=== PATIENT | male | born 1990 | race Caucasian/White ===

== ENCOUNTER 2019-10-30 09:50 | Observation (INO) | payer OTHER ==
[2019-10-30 10:00] VITALS: BMI 21.4
--- NOTE | 2019-10-30 10:30 | PDOC ---
Documentation entered by Maria M Joseph SCRIBE, acting as scribe for Tish Soriano MD. Tish Soriano MD: This documentation has been prepared by the anujaeOpal Xhesika, SCRIBE, under my direction and personally reviewed by me in its entirety. I confirm that the documentation accurately reflects all work, treatment, procedures, and medical decision making performed by me. History of Present Illness - General Chief Complaint: Seizure Stated Complaint: SEIZURES Time Seen by Provider: 10/30/19 09:55 History Source: Patient Exam Limitations: No Limitations - History of Present Illness Initial Comments: 10/30/19 10:03 The patient is a 29 year old male with a significant PMH of seizures (on Depakote)/infantile spasms , anemia, asthma, GERD, and G-tube who presents to the emergency department [facility] [place] s/p witnessed seizure. Per aide at bedside who witnessed the seizure, the pt endorsed hand spasms which is consiste nt with his typical seizures. Aide states the patient was awake and conscious during his episode. Aide notes the pt is at his baseline. Per aide, she denies any chest pain, shortness of breath, fever, chills, cough, nausea, vomiting, diarrhea prior to seizure. Aide unsure how long it lasted for and stated that he had an episode and then it stopped and then started again but patient was awake and able to communicate throughout. Further clarification- Pt's mother (on the phone) states the pt has infantile spasms that are triggered by pain, feeling cold after showers and changes in position. Pt states he felt cold as they were finishing bathing him, which triggered his symptoms. Aide at bedside confirmed that symptoms began as they were finishing up bathing him. Allergies: Per Nursing Charts Past History - Medical History Allergies/Adverse Reactions: Allergies Allergy/AdvReac Type Severity Reaction Status Date / Time Benzodiazepines Allergy Verified 10/30/19 10:01 fentanyl Allergy Verified 10/30/19 10:01 morphine Allergy Verified 10/30/19 10:01 oxycodone Allergy Verified 10/30/19 10:01 vancomycin Allergy Verified 10/30/19 10:01 Home Medications: Ambulatory Orders Albuterol 0.083% Nebulizer Stella [Ventolin 0.083%] 1 neb NEB QID 10/30/19 Ascorbic Acid [Vitamin C] 500 mg GT DAILY 10/30/19 Baclofen [Ozobax] 5 mg GT TID 10/30/19 Budesonide 1 mg IH BID 10/30/19 Calcium Carbonate/Vitamin D3 [Calcium 500 + Vit D3 400 Tab] 1 each GT BID 10/30/19 Ergocalciferol (Vitamin D2) [Vitamin D2] 50,000 unit GT DAILY 10/30/19 Famotidine [Pepcid] 40 mg GT BID 10/30/19 Glycopyrrolate [Cuvposa] 1 mg GT TID 10/30/19 Sennosides [Senna] 8.6 mg GT HS 10/30/19 Valproic Acid (As Sodium Salt) [Valproic Acid] 750 mg GT BID 10/30/19 Anemia: Yes (iron) Asthma: Yes COPD: No GI Disorders: Yes (gerd) Seizures: Yes Other medical history: cp - Surgical History GI Surgery: Yes (gtube) - Psycho-Social/Smoking History Smoking History: Never smoked Have you smoked in the past 12 months: No Information on smoking cessation initiated: No - Substance Abuse Hx (Audit-C & DAST Scrn) How often the patient has a drink containing alcohol: Never Score: In Men: 4 or > Positive; In Women: 3 or > Positive: 0 Screen Result (Pos requires Nsg. Audit-10AR): Negative In the last yr the pt used illegal drug/Rx for NonMed reason: No Score: Yes response is considered Positive: 0 Screen Result (Positive result requires Nsg. DAST-10): Negative Review of Systems - Review of Systems Able to Perform ROS?: Yes Comments:: 10/30/19 10:11 GENERAL/CONSTITUTIONAL: No fever or chills. No weakness. HEAD, EYES, EARS, NOSE AND THROAT: No change in vision. No ear pain or discharge. No sore throat. CARDIOVASCULAR: No chest pain or shortness of breath. RESPIRATORY: No cough, wheezing, or hemoptysis. GASTROINTESTINAL: No nausea, vomiting, diarrhea or constipation. GENITOURINARY: No dysuria, frequency, or change in urination. MUSCULOSKELETAL: No joint or muscle swelling or pain. No neck or back pain. SKIN: No rash NEUROLOGIC: No headache, vertigo, loss of consciousness, or change in strength/sensation. +seizure ENDOCRINE: No increased thirst. No abnormal weight change. HEMATOLOGIC/LYMPHATIC: No anemia, easy bleeding, or history of blood clots. ALLERGIC/IMMUNOLOGIC: No hives or skin allergy. *Physical Exam - Vital Signs Last Vital Signs Temp Pulse Resp BP Pulse Ox 102 H 18 113/78 97 10/30/19 09:54 10/30/19 09:54 10/30/19 09:54 10/30/19 09:54 - Physical Exam 10/30/19 10:26 GENERAL: Well appearing, in no acute distress HEENT: NCAT, conjunctiva not injected, MMM NECK: supple LUNGS: CTAB. Good air entry. No wheezes, No Rhonchi and no crackles HEART: RRR, + s1 s2 ABDOMEN: Soft, nontender, normoactive bowel sounds. No guarding, no rebound. No masses EXTREMITIES: Warm and well perfused. No LE edema. No cords, erythema, or tenderness NEUROLOGICAL: awake, alert, able to answer yes or no to questions (baseline as per aide and mother). Sensation grossly intact to light touch. No focal deficits. SKIN: Warm, dry, normal turgor, no rashes or lesions noted. ED Treatment Course - LABORATORY CBC & Chemistry Diagram: 10/30/19 10:30 10/30/19 10:30 Medical Decision Making - Medical Decision Making 10/30/19 10:28 29yo M h/o infantile spasms/seizures p/w seizure like activity today typical of his seizures/spasms, likely triggered by feeling cold while he was being bathed, currently as baseline MS without any focal deficits. No infectious complaints to suggest infectious etiology and no preceding trauma. However given developmental disability and hx obtained from aide and mother who called will check labs, urine and xray to r/o occult infection or electrolyte abnormality. Plan: -labs -urine -cxr -reassess This clinical encounter is taking place during a federal and state health care emergency attributable to the novel Clifford Virus pandemic. The [place] of the Department of Health and Human Services has declared, pursuant to the Public Health Service Act 319F-3 (42 U.S.C. 247d-6d), that a covered persons activities related to medical countermeasures against COVID-19 will be immune from liability under Federal and State law. 10/30/19 12:58 Depakote level elevated. As per nurse at residence pt often with elevated depak ote level and therefore depakote is only given PRN. Pt. at baseline MSChristie 10/30/19 14:27 Contact info for mother will rao [phone] 10/30/19 15:36 mild transaminitis on labs. Also with elevated ammonia 76. COUNTS INCLUDE 234 BEDS AT [facility] poison control contacted, recommend repeat depakote level and ammonia every 4-6 hours until clear downward trend identified. Also recommend cardiac monitoring as VPA can cause QT prolongation. Will admit to tele obs. Discharge - Discharge Information Problems reviewed: Yes Clinical Impression/Diagnosis: Valproic acid toxicity Qualifiers: Encounter type: initial encounter Injury intent: accidental or unintentional Qualified Code(s): T42.6X1A - Poisoning by other antiepileptic and sedative- hypnotic drugs, accidental (unintentional), initial encounter Condition: Stable - Admission Yes - Follow up/Referral Referrals: Judd Jung Jr [Primary Care Provider] - - Patient Discharge Instructions - Post Discharge Activity
[2019-10-30 11:28] LABS: BASO % 0.5 % (0-2.0); EOS % 0.4 % (0-4.5); HEMATOCRIT 50.9 % (35.4-49); HEMOGLOBIN 17.3 GM/dL (11.7-16.9); LYMPH % 39.9 % (8-40); MCH 33.3 pg (25.7-33.7); MEAN PLT VOLUME 10.5 fl (7.5-11.1); MONO % 11.7 % (3.8-10.2); NEUT % 47.5 % (42.8-82.8); PLATELET COUNT 158 K/MM3 (134-434); RBC 5.19 M/mm3 (4.00-5.60); RDW 14.8 % (11.9-15.9); WHITE BLOOD COUNT 7.8 K/mm3 (4.0-10.0)
[2019-10-30 12:20] LABS: EPI CELLS >36 /uL (0-25.1); HYALINE CASTS 2 /uL (0-3.1); PH,URINE 8.5 (5.0-8.0); URINE APPEARANCE CLEAR; URINE BACTERIA 102 /uL (0-1359); URINE BILIRUBIN NEGATIVE (NEGATIVE); URINE COLOR DK YELLOW; URINE GLUCOSE (UA) NEGATIVE (NEGATIVE); URINE KETONE 1+ (NEGATIVE); URINE LEUK ESTERASE NEGATIVE (NEGATIVE); URINE NITRITE NEGATIVE (NEGATIVE); URINE PROTEIN NEGATIVE (NEGATIVE); URINE RBC 2277 /uL (0-23.9); URINE UROBILINOGEN 0.2 mg/dL (0.2-1.0); URINE WBC 11 /uL (0-25.8)
[2019-10-30 13:04] LABS: CREATININE 0.5 mg/dL (0.55-1.3); POTASSIUM 4.5 mmol/L (3.5-5.1)
[2019-10-30 13:05] LABS: ALBUMIN 3.6 g/dl (3.4-5.0); BILIRUBIN,TOTAL 0.3 mg/dL (0.2-1); CALCIUM 9.4 mg/dL (8.5-10.1); TOT PROT 8.1 g/dl (6.4-8.2)
--- NOTE | 2019-10-30 16:15 | HP ---
CHIEF COMPLAINT: s/p seizure PCP:Dr Riojas (from [facility]) HISTORY OF PRESENT ILLNESS: 29 year old male with a significant PMH of seizures (on Depakote)/infantile spasms , anemia, asthma, GERD, and G-tube who presents to the emergency department from [facility] due to witnessed seizure- as per the Aid and nurse present they state that they witnessed him jerking and shaking his hands which is consistent with his normal seizures; he suffers from infantile spasms and seizures that are usually triggered with change in positioning or change in temperature (mainly when patient is cold) and he said he felt cold (nodded yes) when the seizure occurred , as per dr riojas his depakote levels at its highest has been around 125 ad his LFTS have been trending upward (though he did not have the exact number in front of him) he is also an oral feeder however takes supplements through his G tube patient denies being in any pain and is anxious to go home; aid says that patient is at his baseline mental status (he can say yes or no and speaks a few words) ER course was notable for: (1) vitals wnl (2)wbc 7 Hgb 17 Na 141; ALT 81 AST 62 [place] level 149.9 Ammonia 77 UA ; 1+ KETONES; 3+ BLOOD; 11 WBC 2277 RBC >36 epithelial cells (3) Recent Travel: PAST MEDICAL HISTORY: see above PAST SURGICAL HISTORY: Social History: Smoking:unable to assess Alcohol:unable to assess Drugs: unable to assess Allergies Benzodiazepines Allergy (Verified 10/30/19 10:01) fentanyl Allergy (Verified 10/30/19 10:01) morphine Allergy (Verified 10/30/19 10:01) oxycodone Allergy (Verified 10/30/19 10:01) vancomycin Allergy (Verified 10/30/19 10:01) HOME MEDICATIONS: Home Medications Medication Instructions Recorded Albuterol 0.083% Nebulizer Stella 1 neb NEB QID 10/30/19 [Ventolin 0.083%] Ascorbic Acid [Vitamin C] 500 mg GT DAILY 10/30/19 Baclofen [Ozobax] 5 mg GT TID 10/30/19 Budesonide 1 mg IH BID 10/30/19 Calcium Carbonate/Vitamin D3 1 each GT BID 10/30/19 [Calcium 500 + Vit D3 400 Tab] Ergocalciferol (Vitamin D2) 50,000 unit GT DAILY 10/30/19 [Vitamin D2] Famotidine [Pepcid] 40 mg GT BID 10/30/19 Glycopyrrolate [Cuvposa] 1 mg GT TID 10/30/19 Sennosides [Senna] 8.6 mg GT HS 10/30/19 Valproic Acid (As Sodium Salt) 750 mg GT BID 10/30/19 [Valproic Acid] REVIEW OF SYSTEMS : patient denies any pain though could not further assess CONSTITUTIONAL: Absent: fever, chills, diaphoresis, generalized weakness, malaise, loss of appetite, weight change HEENT: Absent: rhinorrhea, nasal congestion, throat pain, throat swelling, difficulty swallowing, mouth swelling, ear pain, eye pain, visual changes CARDIOVASCULAR: Absent: chest pain, syncope, palpitations, irregular heart rate, lightheadedness, peripheral edema RESPIRATORY: Absent: cough, shortness of breath, dyspnea with exertion, orthopnea, wheezing, stridor, hemoptysis GASTROINTESTINAL: Absent: abdominal pain, abdominal distension, nausea, vomiting, diarrhea, constipation, melena, hematochezia GENITOURINARY: Absent: dysuria, frequency, urgency, hesitancy, hematuria, flank pain, genital pain MUSCULOSKELETAL: Absent: myalgia, arthralgia, joint swelling, back pain, neck pain SKIN: Absent: rash, itching, pallor HEMATOLOGIC/IMMUNOLOGIC: Absent: easy bleeding, easy bruising, lymphadenopathy, frequent infections ENDOCRINE: Absent: unexplained weight gain, unexplained weight loss, heat intolerance, cold intolerance NEUROLOGIC: Absent: headache, focal weakness or paresthesias, dizziness, unsteady gait, seizure, mental status changes, bladder or bowel incontinence PSYCHIATRIC: Absent: anxiety, depression, suicidal or homicidal ideation, hallucinations. PHYSICAL EXAMINATION Vital Signs - 24 hr 10/30/19 10/30/19 09:54 10:22 Temperature 98.1 F Pulse Rate 102 H Respiratory 18 Rate Blood Pressure 113/78 O2 Sat by Pulse 97 Oximetry (%) GENERAL: Awake, alert, NAD EYES:PEERLA: EOMI no scleral icterus NECK: no JVD; no lymphadenopathy LUNGS: CTA B/L no rales, rhonchi or wheezing HEART: RRRR, s1 s2 no mrg ABDOMEN: Soft, slightly distended (though aid says this is normal size) G-Tube in place c/d/i + BS no tenderness upon palpation MUSCULOSKELETAL: Normal range of motion at all joints. No bony deformities or tenderness. No CVA tenderness. EXTREMITIES: warm; well-perfused no clubbing/cyanosis or edema PSYCHIATRIC: Cooperative. Good eye contact. Appropriate mood and affect. SKIN: Warm, dry, normal turgor, no rashes or lesions noted, normal capillary refill. Laboratory Results - last 24 hr 10/30/19 10/30/19 10/30/19 10:30 10:30 10:30 WBC 7.8 RBC 5.19 Hgb 17.3 H Hct 50.9 H MCV 98.0 H MCH 33.3 MCHC 34.0 RDW 14.8 Plt Count 158 MPV 10.5 Absolute Neuts (auto) 3.7 Neutrophils % 47.5 Lymphocytes % 39.9 Monocytes % 11.7 H Eosinophils % 0.4 Basophils % 0.5 Nucleated RBC % 0 Sodium 141 Potassium 4.5 Chloride 107 Carbon Dioxide 25 Anion Gap 9 BUN 13.0 Creatinine 0.5 L Est GFR (CKD-EPI)AfAm 170.92 Est GFR (CKD-EPI)NonAf 147.47 Random Glucose 85 Calcium 9.4 Total Bilirubin 0.3 AST 62 H ALT 81 H Alkaline Phosphatase 72 Ammonia Total Protein 8.1 Albumin 3.6 Urine Color Urine Appearance Urine pH Ur Specific [place] Urine Protein Urine Glucose (UA) Urine Ketones Urine Blood Urine Nitrite Urine Bilirubin Urine Urobilinogen Ur Leukocyte Esterase Urine WBC (Auto) Urine RBC (Auto) Urine Casts (Auto) U Epithel Cells (Auto) U Sm Round Cell (Auto) Urine Bacteria (Auto) Valproic Acid 149.9 H 10/30/19 10/30/19 11:45 13:45 WBC RBC Hgb Hct MCV MCH MCHC RDW Plt Count MPV Absolute Neuts (auto) Neutrophils % Lymphocytes % Monocytes % Eosinophils % Basophils % Nucleated RBC % Sodium Potassium Chloride Carbon Dioxide Anion Gap BUN Creatinine Est GFR (CKD-EPI)AfAm Est GFR (CKD-EPI)NonAf Random Glucose Calcium Total Bilirubin AST ALT Alkaline Phosphatase Ammonia 76.90 H Total Protein Albumin Urine Color Dk yellow Urine Appearance Clear Urine pH 8.5 H Ur Specific [place] 1.026 Urine Protein Negative Urine Glucose (UA) Negative Urine Ketones 1+ H Urine Blood 3+ H Urine Nitrite Negative Urine Bilirubin Negative Urine Urobilinogen 0.2 Ur Leukocyte Esterase Negative Urine WBC (Auto) 11 Urine RBC (Auto) 2277 Urine Casts (Auto) 2 U Epithel Cells (Auto) >36 U Sm Round Cell (Auto) None seen Urine Bacteria (Auto) 102 Valproic Acid ASSESSMENT/PLAN: 29 year old male with a significant PMH of seizures (on Depakote)/infantile spasms , anemia, asthma, GERD, and G-tube who presents to the emergency department from [facility] due to witnessed seizure found to have elevated depakote and ammonia levels #S/P seizure and Valproic Acid Toxicity patients level was 149.9; ammonia 77 -[facility] posion control was contacted: depakote and ammonia levels need to be trended q4-6 hours until downward trend is seen -will contact poison control if upward trend continues as other measures aside from supportive care may need to be taken -EKG and tele monitoring as toxicity can cause prolong qtc -if qtc >475 will give 2grams of magnesium -neuro consult -seizure precautions -CPK and Prolactin levels pending -allergic to benzos -will repeat CMP to trend Na and LFTS #? UTI UA is mildly positive with 11 wbc though >36 epithelial cells; could explain why he suffered from a seizure -will cover with ceftriaxone and repeat UA in AM -f/u urine cx #Asthma c/w albuterol and budesonide -not in any acute exacerbation currently #GERD c/w famotidine f/e/n not on fluids monitor electrolytes regular diet scds tele monitoring Family Medical History Family History: Unable to Obtain Problem List - Problem (1) Valproic acid toxicity Code(s): T42.6X1A - POISONING BY OTH ANTIEPLPTC AND SED-HYPNTC DRUGS, ACC, INIT Qualifiers: Encounter type: initial encounter Injury intent: accidental or unintentional Qualified Code(s): T42.6X1A - Poisoning by other antiepileptic and sedative-hypnotic drugs, accidental (unintentional), initial encounter Visit type - Emergency Visit Emergency Visit: Yes ED Registration Date: 10/30/19 Care time: The patient presented to the Emergency Department on the above date and was hospitalized for further evaluation of their emergent condition. - New Patient This patient is new to me today: Yes Date on this admission: 10/30/19 - Critical Care Critical Care patient: No ATTENDING PHYSICIAN STATEMENT I saw and evaluated the patient. I reviewed the resident's note and discussed the case with the resident. I agree with the resident's findings and plan as documented. SUBJECTIVE: OBJECTIVE: ASSESSMENT AND PLAN:
[2019-10-30] MEDS ORDERED: CEFTRIAXONE 1 GM/50 ML BAG ONE (17:47)
[2019-10-30] MEDS ORDERED: ALBUTEROL SO4 HFA INHALER IH PRN (18:00)
[2019-10-30] MEDS: CEFTRIAXONE 1 GM in DEXTROSE 5%-WATER - 50 ML IVPB SCH (18:11)
[2019-10-30 18:12] LABS: ALBUMIN 3.7 g/dl (3.4-5.0); BILIRUBIN,TOTAL 0.3 mg/dL (0.2-1); BLOOD UREA NITROGEN 15.6 mg/dL (7-18); CALCIUM 9.4 mg/dL (8.5-10.1); CREATININE 0.5 mg/dL (0.55-1.3); POTASSIUM 4.2 mmol/L (3.5-5.1); TOT PROT 8.1 g/dl (6.4-8.2)
--- NOTE | 2019-10-30 21:47 | PN ---
Teaching Attending Note Name of Resident: Gabby Triplett ATTENDING PHYSICIAN STATEMENT I saw and evaluated the patient. I reviewed the resident's note and discussed the case with the resident. I agree with the resident's findings and plan as documented. SUBJECTIVE: Patient seen and examined at bedside, admitted for lethargy/AMS, found to have supratherapeutic Depakote levels, now trending down, MS at baseline. QTc 422ms. VSS. OBJECTIVE: GA communicative, answers to simple questions HEENT NC/AT, macrognathia, eomi, protecting airway Chest Good inspiratory effort, decreased BS at bases CVS S1, S2+, RRR Abd distended, mildly firm to palpation, BS+, no guarding NT ext contracted extremities (chronic), moves UE b/l Vital Signs - 24 hr 10/30/19 10/30/19 10/30/19 09:54 10:22 15:28 Temperature 98.1 F Pulse Rate 102 H Pulse Rate [ 101 H Left Radial] Respiratory 18 19 Rate Blood Pressure 113/78 Blood Pressure 141/71 [Left Arm] O2 Sat by Pulse 97 99 Oximetry (%) 10/30/19 19:01 Temperature Pulse Rate Pulse Rate [ Left Radial] Respiratory 19 Rate Blood Pressure Blood Pressure [Left Arm] O2 Sat by Pulse 99 Oximetry (%) Laboratory Results - last 24 hr 10/30/19 10/30/19 10/30/19 10:30 10:30 10:30 WBC 7.8 RBC 5.19 Hgb 17.3 H Hct 50.9 H MCV 98.0 H MCH 33.3 MCHC 34.0 RDW 14.8 Plt Count 158 MPV 10.5 Absolute Neuts (auto) 3.7 Neutrophils % 47.5 Lymphocytes % 39.9 Monocytes % 11.7 H Eosinophils % 0.4 Basophils % 0.5 Nucleated RBC % 0 Sodium 141 Potassium 4.5 Chloride 107 Carbon Dioxide 25 Anion Gap 9 BUN 13.0 Creatinine 0.5 L Est GFR (CKD-EPI)AfAm 170.92 Est GFR (CKD-EPI)NonAf 147.47 Random Glucose 85 Calcium 9.4 Total Bilirubin 0.3 AST 62 H ALT 81 H Alkaline Phosphatase 72 Ammonia Creatine Kinase Total Protein 8.1 Albumin 3.6 Urine Color Urine Appearance Urine pH Ur Specific [place] Urine Protein Urine Glucose (UA) Urine Ketones Urine Blood Urine Nitrite Urine Bilirubin Urine Urobilinogen Ur Leukocyte Esterase Urine WBC (Auto) Urine RBC (Auto) Urine Casts (Auto) U Epithel Cells (Auto) U Sm Round Cell (Auto) Urine Bacteria (Auto) Valproic Acid 149.9 H 10/30/19 10/30/19 10/30/19 11:45 13:45 17:00 WBC RBC Hgb Hct MCV MCH MCHC RDW Plt Count MPV Absolute Neuts (auto) Neutrophils % Lymphocytes % Monocytes % Eosinophils % Basophils % Nucleated RBC % Sodium 142 Potassium 4.2 Chloride 107 Carbon Dioxide 29 Anion Gap 6 L BUN 15.6 Creatinine 0.5 L Est GFR (CKD-EPI)AfAm 170.92 Est GFR (CKD-EPI)NonAf 147.47 Random Glucose 102 Calcium 9.4 Total Bilirubin 0.3 AST 54 H ALT 81 H Alkaline Phosphatase 80 Ammonia 76.90 H Creatine Kinase 72 Total Protein 8.1 Albumin 3.7 Urine Color Dk yellow Urine Appearance Clear Urine pH 8.5 H Ur Specific [place] 1.026 Urine Protein Negative Urine Glucose (UA) Negative Urine Ketones 1+ H Urine Blood 3+ H Urine Nitrite Negative Urine Bilirubin Negative Urine Urobilinogen 0.2 Ur Leukocyte Esterase Negative Urine WBC (Auto) 11 Urine RBC (Auto) 2277 Urine Casts (Auto) 2 U Epithel Cells (Auto) >36 U Sm Round Cell (Auto) None seen Urine Bacteria (Auto) 102 Valproic Acid 10/30/19 10/30/19 17:00 17:00 WBC RBC Hgb Hct MCV MCH MCHC RDW Plt Count MPV Absolute Neuts (auto) Neutrophils % Lymphocytes % Monocytes % Eosinophils % Basophils % Nucleated RBC % Sodium Potassium Chloride Carbon Dioxide Anion Gap BUN Creatinine Est GFR (CKD-EPI)AfAm Est GFR (CKD-EPI)NonAf Random Glucose Calcium Total Bilirubin AST ALT Alkaline Phosphatase Ammonia 47.80 H Creatine Kinase Total Protein Albumin Urine Color Urine Appearance Urine pH Ur Specific [place] Urine Protein Urine Glucose (UA) Urine Ketones Urine Blood Urine Nitrite Urine Bilirubin Urine Urobilinogen Ur Leukocyte Esterase Urine WBC (Auto) Urine RBC (Auto) Urine Casts (Auto) U Epithel Cells (Auto) U Sm Round Cell (Auto) Urine Bacteria (Auto) Valproic Acid 114.5 H Home Medications Medication Instructions Recorded Albuterol 0.083% Nebulizer Stella 1 neb NEB QID 10/30/19 [Ventolin 0.083%] Ascorbic Acid [Vitamin C] 500 mg GT DAILY 10/30/19 Baclofen [Ozobax] 5 mg GT TID 10/30/19 Budesonide 1 mg IH BID 10/30/19 Calcium Carbonate/Vitamin D3 1 each GT BID 10/30/19 [Calcium 500 + Vit D3 400 Tab] Ergocalciferol (Vitamin D2) 50,000 unit GT DAILY 10/30/19 [Vitamin D2] Famotidine [Pepcid] 40 mg GT BID 10/30/19 Glycopyrrolate [Cuvposa] 1 mg GT TID 10/30/19 Sennosides [Senna] 8.6 mg GT HS 10/30/19 Valproic Acid (As Sodium Salt) 750 mg GT BID 10/30/19 [Valproic Acid] Current Medications Generic Name Dose Route Start Last Admin Trade Name Freq PRN Reason Stop Dose Admin Albuterol Sulfate 2 puff 10/30/19 18:00 Ventolin Hfa Inhaler - IH Q6H PRN SHORTNESS OF BREATH Famotidine 40 mg 10/30/19 22:00 Pepcid PEG BID JEREMIAH Ceftriaxone Sodium 1 gm/ 50 mls @ 100 mls/hr 10/30/19 16:45 10/30/19 18:11 Dextrose IVPB 100 mls/hr DAILY JEREMIAH Administration Protocol Mometasone Furoate 1 puff 10/30/19 22:00 Asmanex 220mcg - IH BID JEREMIAH Valproate Sodium 500 mg 10/30/19 22:00 Depakene - PO BID JEREMIAH ASSESSMENT AND PLAN: 29 M Breakthrough seizures Supratherapeutic Depakote levels Mild transaminitis Hyperammonia 2/2 depakote use Seizure disorder Bed-bound MR Plan: Cont. to hold Depakote, levels trending down, no indication for invasive measures (i.e. charcoal/carnitine gtt) IV hydration, QTc 422ms, MS at baseline Neurology evaluation for titration of seizure meds Tele obs DC in AM if levels <100
[2019-10-30] MEDS ORDERED: BUDESONIDE 1 MG IH SCH (22:00)
[2019-10-30] MEDS: VALPROATE SODIUM 250 MG/5 ML UNIT DOSE CUP PO SCH (23:13)
[2019-10-30] MEDS: MOMETASONE FUROATE 220 MCG/IH INHALER IH SCH (23:13)
[2019-10-30] MEDS: FAMOTIDINE 40 MG/5 ML ORAL SUSPENSION PEG SCH (23:13)
[2019-10-31 07:34] LABS: BASO % 0.5 % (0-2.0); EOS % 0.4 % (0-4.5); HEMOGLOBIN 16.4 GM/dL (11.7-16.9); LYMPH % 46.9 % (8-40); MCH 32.5 pg (25.7-33.7); MCHC 33.4 g/dl (32.0-35.9); MEAN CELL VOLUME 97.1 fl (80-96); MEAN PLT VOLUME 10.7 fl (7.5-11.1); MONO % 11.6 % (3.8-10.2); NEUT % 40.6 % (42.8-82.8); PLATELET COUNT 159 K/MM3 (134-434); RBC 5.04 M/mm3 (4.00-5.60); RDW 14.7 % (11.9-15.9); WHITE BLOOD COUNT 9.6 K/mm3 (4.0-10.0)
[2019-10-31 08:02] LABS: MAGNESIUM 2.1 mg/dL (1.8-2.4); PHOSPHOROUS 4.9 mg/dL (2.5-4.9)
[2019-10-31] MEDS ORDERED: DEXTROSE 5%-WATER - 50 ML IVPB ONE (09:37)
[2019-10-31] MEDS ORDERED: cefTRIAXone SODIUM 1 GM VIAL ONE (09:37)
--- NOTE | 2019-10-31 09:53 | PN ---
Physical Exam: SUBJECTIVE: Patient seen and examined OBJECTIVE: Vital Signs Period Temp Pulse Resp BP Sys/Bhakta Pulse Ox Last 24 Hr 97.7 F-98.1 F 62-102 18-20 113-141/55-80 95-99 GENERAL: The patient is awake, alert, and fully oriented, in no acute distress. HEAD: Normal with no signs of trauma. EYES: PERRL, extraocular movements intact, sclera anicteric, conjunctiva clear. No ptosis. ENT: Ears normal, nares patent, oropharynx clear without exudates, moist mucous membranes. NECK: Trachea midline, full range of motion, supple. LUNGS: Breath sounds equal, clear to auscultation bilaterally, no wheezes, no crackles, no accessory muscle use. HEART: Regular rate and rhythm, S1, S2 without murmur, rub or gallop. ABDOMEN: Soft, nontender, nondistended, normoactive bowel sounds, no guarding, no rebound, no hepatosplenomegaly, no masses. EXTREMITIES: 2+ pulses, warm, well-perfused, no edema. NEUROLOGICAL: Cranial nerves II through XII grossly intact. Normal speech, gait not observed. PSYCH: Normal mood, normal affect. SKIN: Warm, dry, normal turgor, no rashes or lesions noted Laboratory Results - last 24 hr 10/30/19 10/30/19 10/30/19 10:30 10:30 10:30 WBC 7.8 RBC 5.19 Hgb 17.3 H Hct 50.9 H MCV 98.0 H MCH 33.3 MCHC 34.0 RDW 14.8 Plt Count 158 MPV 10.5 Absolute Neuts (auto) 3.7 Neutrophils % 47.5 Lymphocytes % 39.9 Monocytes % 11.7 H Eosinophils % 0.4 Basophils % 0.5 Nucleated RBC % 0 Sodium 141 Potassium 4.5 Chloride 107 Carbon Dioxide 25 Anion Gap 9 BUN 13.0 Creatinine 0.5 L Est GFR (CKD-EPI)AfAm 170.92 Est GFR (CKD-EPI)NonAf 147.47 Random Glucose 85 Calcium 9.4 Phosphorus Magnesium Total Bilirubin 0.3 AST 62 H ALT 81 H Alkaline Phosphatase 72 Ammonia Creatine Kinase Total Protein 8.1 Albumin 3.6 Urine Color Urine Appearance Urine pH Ur Specific [place] Urine Protein Urine Glucose (UA) Urine Ketones Urine Blood Urine Nitrite Urine Bilirubin Urine Urobilinogen Ur Leukocyte Esterase Urine WBC (Auto) Urine RBC (Auto) Urine Casts (Auto) U Epithel Cells (Auto) U Sm Round Cell (Auto) Urine Bacteria (Auto) Valproic Acid 149.9 H 10/30/19 10/30/19 10/30/19 11:45 13:45 17:00 WBC RBC Hgb Hct MCV MCH MCHC RDW Plt Count MPV Absolute Neuts (auto) Neutrophils % Lymphocytes % Monocytes % Eosinophils % Basophils % Nucleated RBC % Sodium 142 Potassium 4.2 Chloride 107 Carbon Dioxide 29 Anion Gap 6 L BUN 15.6 Creatinine 0.5 L Est GFR (CKD-EPI)AfAm 170.92 Est GFR (CKD-EPI)NonAf 147.47 Random Glucose 102 Calcium 9.4 Phosphorus Magnesium Total Bilirubin 0.3 AST 54 H ALT 81 H Alkaline Phosphatase 80 Ammonia 76.90 H Creatine Kinase 72 Total Protein 8.1 Albumin 3.7 Urine Color Dk yellow Urine Appearance Clear Urine pH 8.5 H Ur Specific [place] 1.026 Urine Protein Negative Urine Glucose (UA) Negative Urine Ketones 1+ H Urine Blood 3+ H Urine Nitrite Negative Urine Bilirubin Negative Urine Urobilinogen 0.2 Ur Leukocyte Esterase Negative Urine WBC (Auto) 11 Urine RBC (Auto) 2277 Urine Casts (Auto) 2 U Epithel Cells (Auto) >36 U Sm Round Cell (Auto) None seen Urine Bacteria (Auto) 102 Valproic Acid 10/30/19 10/30/19 10/31/19 17:00 17:00 06:00 WBC RBC Hgb Hct MCV MCH MCHC RDW Plt Count MPV Absolute Neuts (auto) Neutrophils % Lymphocytes % Monocytes % Eosinophils % Basophils % Nucleated RBC % Sodium Potassium Chloride Carbon Dioxide Anion Gap BUN Creatinine Est GFR (CKD-EPI)AfAm Est GFR (CKD-EPI)NonAf Random Glucose Calcium Phosphorus 4.9 Magnesium 2.1 Total Bilirubin AST ALT Alkaline Phosphatase Ammonia 47.80 H Creatine Kinase 63 Total Protein Albumin Urine Color Urine Appearance Urine pH Ur Specific [place] Urine Protein Urine Glucose (UA) Urine Ketones Urine Blood Urine Nitrite Urine Bilirubin Urine Urobilinogen Ur Leukocyte Esterase Urine WBC (Auto) Urine RBC (Auto) Urine Casts (Auto) U Epithel Cells (Auto) U Sm Round Cell (Auto) Urine Bacteria (Auto) Valproic Acid 114.5 H 10/31/19 06:10 WBC 9.6 RBC 5.04 Hgb 16.4 Hct 49.0 MCV 97.1 H MCH 32.5 MCHC 33.4 RDW 14.7 Plt Count 159 MPV 10.7 Absolute Neuts (auto) 3.9 Neutrophils % 40.6 L Lymphocytes % 46.9 H Monocytes % 11.6 H Eosinophils % 0.4 Basophils % 0.5 Nucleated RBC % 0 Sodium Potassium Chloride Carbon Dioxide Anion Gap BUN Creatinine Est GFR (CKD-EPI)AfAm Est GFR (CKD-EPI)NonAf Random Glucose Calcium Phosphorus Magnesium Total Bilirubin AST ALT Alkaline Phosphatase Ammonia Creatine Kinase Total Protein Albumin Urine Color Urine Appearance Urine pH Ur Specific [place] Urine Protein Urine Glucose (UA) Urine Ketones Urine Blood Urine Nitrite Urine Bilirubin Urine Urobilinogen Ur Leukocyte Esterase Urine WBC (Auto) Urine RBC (Auto) Urine Casts (Auto) U Epithel Cells (Auto) U Sm Round Cell (Auto) Urine Bacteria (Auto) Valproic Acid Active Medications Generic Name Dose Route Start Last Admin Trade Name Freq PRN Reason Stop Dose Admin Albuterol Sulfate 2 puff 10/30/19 18:00 Ventolin Hfa Inhaler - IH Q6H PRN SHORTNESS OF BREATH Famotidine 40 mg 10/30/19 22:00 10/30/19 23:13 Pepcid PEG Not Given BID JEREMIAH Ceftriaxone Sodium 1 gm/ 50 mls @ 100 mls/hr 10/30/19 16:45 10/30/19 18:11 Dextrose IVPB 100 mls/hr DAILY JEREMIAH Administration Protocol Mometasone Furoate 1 puff 10/30/19 22:00 10/30/19 23:13 Asmanex 220mcg - IH Not Given BID JEREMIAH Valproate Sodium 500 mg 10/30/19 22:00 10/30/19 23:13 Depakene - PO 500 mg BID JEREMIAH Administration ASSESSMENT/PLAN:
[2019-10-31] MEDS: FAMOTIDINE 40 MG/5 ML ORAL SUSPENSION PEG SCH (10:52)
[2019-10-31] MEDS: MOMETASONE FUROATE 220 MCG/IH INHALER IH SCH (10:52)
[2019-10-31] MEDS ORDERED: ERGOCALCIFEROL (VIT D2) 50,000 UNIT (1.25 MG) CAPSULE PO SCH (11:00)
[2019-10-31] MEDS: VALPROATE SODIUM 250 MG/5 ML UNIT DOSE CUP PO SCH (11:03)
[2019-10-31] MEDS: CEFTRIAXONE 1 GM in DEXTROSE 5%-WATER - 50 ML IVPB SCH (11:03)
[2019-10-31] MEDS ORDERED: CALCIUM 500MG/VIT-D 200 UNITS COMBO TABLET (FP) GT SCH (12:00)
[2019-10-31] MEDS ORDERED: ASCORBIC ACID 500 MG/5 ML UNIT DOSE CUP GT SCH (12:00)
[2019-10-31 12:06] LABS: BASO % 0.8 % (0-2.0); EOS % 0.3 % (0-4.5); HEMATOCRIT 49.8 % (35.4-49); HEMOGLOBIN 16.9 GM/dL (11.7-16.9); LYMPH % 40.1 % (8-40); MCH 33.2 pg (25.7-33.7); MEAN CELL VOLUME 97.7 fl (80-96); MEAN PLT VOLUME 11.3 fl (7.5-11.1); MONO % 12.6 % (3.8-10.2); NEUT % 46.2 % (42.8-82.8); PLATELET COUNT 133 K/MM3 (134-434); RDW 14.8 % (11.9-15.9); WHITE BLOOD COUNT 8.7 K/mm3 (4.0-10.0)
[2019-10-31 12:14] LABS: ALBUMIN 3.6 g/dl (3.4-5.0); BILIRUBIN,TOTAL 0.3 mg/dL (0.2-1); BLOOD UREA NITROGEN 20.7 mg/dL (7-18); CALCIUM 9.3 mg/dL (8.5-10.1); CREATININE 0.5 mg/dL (0.55-1.3); POTASSIUM 4.7 mmol/L (3.5-5.1); TOT PROT 7.7 g/dl (6.4-8.2)
--- NOTE | 2019-10-31 12:38 | EKG ---
Test Reason : Blood Pressure : / mmHG Vent. Rate : 106 BPM Atrial Rate : 106 BPM P-R Int : 122 ms QRS Dur : 096 ms QT Int : 318 ms P-R-T Axes : 031 037 029 degrees QTc Int : 422 ms SINUS TACHYCARDIA INCOMPLETE RIGHT BUNDLE BRANCH BLOCK NONSPECIFIC T WAVE ABNORMALITY ABNORMAL ECG NO PREVIOUS ECGS AVAILABLE Confirmed by FUNMILAYO TESFAYE, ÁNGEL ([id number]) on 10/31/2019 12:37:26 PM Referred By: Confirmed By:ÁNGEL MELLO MD
[2019-10-31] MEDS ORDERED: GLYCOPYRROLATE 1 MG GT SCH (14:00)
[2019-10-31] MEDS ORDERED: BACLOFEN 5 MG GT SCH (14:00)
--- NOTE | 2019-10-31 14:47 | DS ---
Physical Exam: SUBJECTIVE: Patient seen and examined at bedside. OBJECTIVE: Vital Signs Period Temp Pulse Resp BP Sys/Bhakta Pulse Ox Last 24 Hr 97.7 F-98 F 62-101 18-20 114-141/55-80 95-99 PHYSICAL EXAM GENERAL: The patient is awake, says name "Jason", otherwise nonverbal EYES: PERRL, extraocular movements intact, sclera anicteric, conjunctiva clear. ENT: Ears normal, nares patent, oropharynx clear without exudates, moist mucous membranes. LUNGS: Breath sounds equal, clear to auscultation bilaterally, no wheezes, no crackles, no accessory muscle use. HEART: Regular rate and rhythm, S1, S2 without murmur, rub or gallop. ABDOMEN: Soft, nontender, nondistended, normoactive bowel sounds, no guarding, no rebound, no hepatosplenomegaly, no masses. EXTREMITIES: 2+ pulses, warm, well-perfused, no edema. NEUROLOGICAL: Cranial nerves II through XII grossly intact. Normal speech, gait not observed. PSYCH: Normal mood, normal affect. SKIN: Warm, dry, normal turgor, no rashes or lesions noted. LABS Laboratory Results - last 24 hr 10/30/19 10/30/19 10/30/19 13:45 17:00 17:00 WBC RBC Hgb Hct MCV MCH MCHC RDW Plt Count MPV Absolute Neuts (auto) Neutrophils % Lymphocytes % Monocytes % Eosinophils % Basophils % Nucleated RBC % Sodium 142 Potassium 4.2 Chloride 107 Carbon Dioxide 29 Anion Gap 6 L BUN 15.6 Creatinine 0.5 L Est GFR (CKD-EPI)AfAm 170.92 Est GFR (CKD-EPI)NonAf 147.47 Random Glucose 102 Calcium 9.4 Phosphorus Magnesium Total Bilirubin 0.3 AST 54 H ALT 81 H Alkaline Phosphatase 80 Ammonia 76.90 H 47.80 H Creatine Kinase 72 Total Protein 8.1 Albumin 3.7 Valproic Acid 10/30/19 10/31/19 10/31/19 17:00 06:00 06:10 WBC 9.6 RBC 5.04 Hgb 16.4 Hct 49.0 MCV 97.1 H MCH 32.5 MCHC 33.4 RDW 14.7 Plt Count 159 MPV 10.7 Absolute Neuts (auto) 3.9 Neutrophils % 40.6 L Lymphocytes % 46.9 H Monocytes % 11.6 H Eosinophils % 0.4 Basophils % 0.5 Nucleated RBC % 0 Sodium Potassium Chloride Carbon Dioxide Anion Gap BUN Creatinine Est GFR (CKD-EPI)AfAm Est GFR (CKD-EPI)NonAf Random Glucose Calcium Phosphorus 4.9 Magnesium 2.1 Total Bilirubin AST ALT Alkaline Phosphatase Ammonia Creatine Kinase 63 Total Protein Albumin Valproic Acid 114.5 H 10/31/19 10/31/19 10/31/19 11:20 11:20 11:20 WBC 8.7 RBC 5.10 Hgb 16.9 Hct 49.8 H MCV 97.7 H MCH 33.2 MCHC 34.0 RDW 14.8 Plt Count 133 L MPV 11.3 H Absolute Neuts (auto) 4.0 Neutrophils % 46.2 Lymphocytes % 40.1 H Monocytes % 12.6 H Eosinophils % 0.3 Basophils % 0.8 Nucleated RBC % 0 Sodium 143 Potassium 4.7 Chloride 107 Carbon Dioxide 29 Anion Gap 7 L BUN 20.7 H Creatinine 0.5 L Est GFR (CKD-EPI)AfAm 170.92 Est GFR (CKD-EPI)NonAf 147.47 Random Glucose 93 Calcium 9.3 Phosphorus Magnesium Total Bilirubin 0.3 AST 48 H ALT 73 H Alkaline Phosphatase 69 Ammonia 37.20 H Creatine Kinase Total Protein 7.7 Albumin 3.6 Valproic Acid 10/31/19 11:20 WBC RBC Hgb Hct MCV MCH MCHC RDW Plt Count MPV Absolute Neuts (auto) Neutrophils % Lymphocytes % Monocytes % Eosinophils % Basophils % Nucleated RBC % Sodium Potassium Chloride Carbon Dioxide Anion Gap BUN Creatinine Est GFR (CKD-EPI)AfAm Est GFR (CKD-EPI)NonAf Random Glucose Calcium Phosphorus Magnesium Total Bilirubin AST ALT Alkaline Phosphatase Ammonia Creatine Kinase Total Protein Albumin Valproic Acid 83.8 HOSPITAL COURSE: Date of Admission:10/30/19 Date of Discharge: 10/31/19 29 year-old male with a PMH significant for seizure disorder/infantile spasms , anemia, asthma, GERD, and G-tube who presented to the emergency department from [facility] due to witnessed seizure. As per aide and nurse, they witnessed him jerking and shaking his hands which is consistent with his normal seizures. Depakote level in ED 149, ammonia 77. Per Dr. Jung, medical librarian of [place], patient's highest depakote level by history is 125. Patient at baseline mental status per [facility] clinicians. Patient was kept overnight on observation for elevated valproic acid and ammonia levels. Both trended down the next day. Patient was seen and evaluated by neurologist Dr. Diaz, and recommended patient be discharged on lower dose of depatkote 500mg BID. Patient's mother/HCP made aware. She objected to the medication change. Advised her both Dr. Diaz and Dr. Jung thought the medication change was appropriate and she could discuss the matter further with them. Minutes to complete discharge: 35 Discharge Summary Problems reviewed: Yes Reason For Visit: VALPROIC ACID TOXICITY Current Active Problems Valproic acid toxicity (Acute) Condition: Stable - Instructions Diet, Activity, Other Instructions: Patient was seen and evaluated by neurologist Dr. Diaz who recommends patient be continued on valproate/Depakene 500mg BID. This was discussed with Dr. Jung. Referrals: Judd Jung Jr [Primary Care Provider] - Disposition: LONG-TERM FACILITY - Home Medications Comprehensive Discharge Medication List: Ambulatory Orders Albuterol 0.083% Nebulizer Stella [Ventolin 0.083%] 1 neb NEB QID 10/30/19 Ascorbic Acid [Vitamin C] 500 mg GT DAILY 10/30/19 Baclofen [Ozobax] 5 mg GT TID 10/30/19 Budesonide 1 mg IH BID 10/30/19 Calcium Carbonate/Vitamin D3 [Calcium 500 + Vit D3 400 Tab] 1 each GT BID 10/30/19 Ergocalciferol (Vitamin D2) [Vitamin D2] 50,000 unit GT DAILY 10/30/19 Famotidine [Pepcid] 40 mg GT BID 10/30/19 Glycopyrrolate [Cuvposa] 1 mg GT TID 10/30/19 Sennosides [Senna] 8.6 mg GT HS 10/30/19 Valproic Acid (As Sodium Salt) [Valproic Acid] 750 mg GT BID 10/30/19 This patient is new to me today: Yes Date on this admission: 11/02/19 Emergency Visit: Yes ED Registration Date: 10/30/19 Care time: The patient presented to the Emergency Department on the above date and was hospitalized for further evaluation of their emergent condition. Critical Care patient: No - Discharge Referral Referred to [facility] Med P.C.: No
[2019-10-31] MEDS ORDERED: VALPROATE SODIUM 250 MG/5 ML UNIT DOSE CUP PO ONE (15:15)
[2019-10-31 18:44] VITALS: BP 139/88; PULSE 139; TEMP 98
[2019-10-31] MEDS ORDERED: SENNOSIDES 8.8 MG/5 ML BULK BOTTLE PO SCH (22:00)
[2019-10-31] MEDS ORDERED: VALPROATE SODIUM 250 MG/5 ML UNIT DOSE CUP PO SCH (22:00)
== END 2019-10-31 21:01 ==
LOC: JER 09:50 → JERBED 15:57 → INTOOBSV 15:57 → J4W 20:21
PROVIDERS: ATTEND Nurse Practitioner Acute Care
DX: T42.6X1A Poisoning by other antiepileptic and sedative-hypnotic drugs, accidental (unintentional), initial encounter (principal); Z88.5 Allergy status to narcotic agent; Z88.1 Allergy status to other antibiotic agents; J45.909 Unspecified asthma, uncomplicated; N39.0 Urinary tract infection, site not specified; K21.9 Gastro-esophageal reflux disease without esophagitis; R79.89 Other specified abnormal findings of blood chemistry; R74.0 Nonspecific elevation of levels of transaminase and lactic acid dehydrogenase [LDH]; Z74.01 Bed confinement status; F79 Unspecified intellectual disabilities; G40.822 Epileptic spasms, not intractable, without status epilepticus; Z93.1 Gastrostomy status
CPT/HCPCS: 36415; 71045-TC-FY; 80053; 80164; 81003; 82140; 82550; 83735; 84100; 84146; 85025; 85027; 87086; 93005; 93010; 99285-25; G0378; U0003